=== PATIENT | male | born 1995 | race Caucasian/White ===

== ENCOUNTER 2020-10-02 14:02 | Emergency (ER) | payer OTHER, SELFPAY ==
[2020-10-02 14:14] VITALS: BP 150/101; PULSE 116; RESP 28; TEMP 36.7; O2SAT 97; BMI 20.9
--- NOTE | 2020-10-02 14:20 | XR_ITS ---
PROCEDURE: XR CHEST PORTABLE CLINICAL HISTORY: cough COMPARISON: No exams were available for comparison FINDINGS: The cardiomediastinal silhouette and pulmonary vascularity are within normal limits. The lungs are clear without infiltrates, suspicious nodules, or pleural effusions. No acute bony abnormalities. IMPRESSION: No acute findings. Dictated by: Bandar York MD 10/02/2020 14:31 Bandar York MD in [place] 10/02/2020 14:31
--- NOTE | 2020-10-02 14:37 | [facility].EDANX ---
ED Disposition Clinical Impression: Acute anxiety Disposition: Home, Self-Care Condition on Discharge: Good Instructions: Anxiety and Panic Attacks (Alternative Therapy) Prescriptions: LORazepam [Ativan 1mg tablet] 1 mg PO BID #6 tab Prescription Printed Referrals: Lexie Sullivan [Primary Care Provider] - - Critical Care Critical Care Time: No Attestation: On 10/02/20, the high probability of a clinically significant, sudden or life threatening deterioration of the following system(s) required my full and direct attention, intervention and personal management. The time I documented below is in addition to time spent performing reported procedures but includes the following listed in this critical care notation. Medical Decision Making - Medical Records Medical records reviewed: Yes: I reviewed the patient's medical records. - Betito Inquiry Pt receiving controlled substance: No Vital Signs: 10/02/20 14:14 10/02/20 15:20 Temperature 98.1 F Temperature Source Oral Pulse Rate [Right Brachial] 116 H 94 H Respiratory Rate 28 H 17 Blood Pressure [Right Arm] 150/101 H 127/76 Blood Pressure Mean [Right Arm] 117 93 Blood Pressure Source [Right Arm] Automatic Cuff Automatic Cuff Blood Pressure Position [Right Arm] Sitting Supine 02 Sat by Pulse Oximetry 97 95 Oxygen Delivery Method Room Air Room Air - Lab Data Lab Results 10/02/20 12:35: Sodium 139, Potassium 4.1, Chloride 95 L, Carbon Dioxide 32 H, Anion Gap 16.1 H, BUN 9, Creatinine 1.10, Estimated Creat Clear 98, Estimated GFR 81, Est GFR ( Amer) 98, Glucose 96, Calcium 9.8, Total Bilirubin 0.4, AST 38, ALT 20, Alkaline Phosphatase 85, Troponin I < 0.01, Total Protein 7.5, Albumin 4.6, Globulin 2.9, Albumin/Globulin Ratio 1.6 10/02/20 14:35: WBC 8.1, RBC 5.81, Hgb 16.6, Hct 50.0, MCV 86.1, MCH 28.6, MCHC 33.3, RDW 13.2, Plt Count 325, MPV 7.1 L, Neut % (Auto) 67.2, Lymph % (Auto) 24.2, [place] % (Auto) 7.1, Eos % (Auto) 0.9, Baso % (Auto) 0.7, Neut # (Auto) 5.4, Lymph # (Auto) 2.0, [place] # (Auto) 0.6, Eos # (Auto) 0.1, Baso # (Auto) 0.1 Result diagrams: 10/02/20 14:35 10/02/20 12:35 Orders (Tests/Meds): ED MEDICATIONS Generic Name Dose Route Start Last Admin Trade Name Freq PRN Reason Stop Dose Admin Sodium Chloride 10 ml 10/02/20 14:21 10/02/20 14:48 Sodium Chloride 0.9% 10ml Vial IV 11/01/20 14:20 10 ml NEEDED PRN Administration to Dilute Lorazepam inj Discontinued Medications Generic Name Dose Route Start Last Admin Trade Name Freq PRN Reason Stop Dose Admin Lorazepam 1 mg 10/02/20 14:21 10/02/20 14:43 Lorazepam 2mg/Ml Vial IV 10/02/20 14:22 1 mg ONCE ONE Administration ORDERS Category Date Time Status Troponin I Q3H Lab 10/02/20 17:30 Ordered Troponin I Q3H Lab 10/02/20 20:30 Ordered - Radiology Data #1 Image(s): Chest Image Reviewed: Yes I reviewed the patient's radiology results, Yes I reviewed the patient's radiology image, Yes I have reviewed radiologist's interpretation Preliminary Findings: Normal/NAD - ECG Data Tracing #1 Tachycardic rate of 106 bpm, normal UT interval, normal QTC. Sinus tachycardia with nonspecific changes ECG initial impression date: 10/02/20 ECG initial impression time: 14:44 - Reevaluation(s) Time: 15:51 Reevaluation #1: On reevaluation, patient is feeling much better. Much less anxious. Troponin was negative. Patient is currently hemodynamically stable. Needs to follow-up with PCP. Given strict return precautions. Verbalized understanding. Medical Decision Narrative: 25-year-old male presented to the emergency department with what appears to be anxiety. The patient is very anxious on my initial examination. Work-up will be initiated. Anxiety HPI - General Chief Complaint: Anxiety Stated Complaint: anxiety attack Time Seen by Provider: 10/02/20 14:20 Mode of Arrival: Ambulatory Limitations: No Limitations Description
--- NOTE | 2020-10-02 14:41 | ECG_ITS ---
APPROVED REPORT Exam: Resting ECG HR:106 bpm ECG Measurements Heart Rate 106 AXES AK 140 P 56 QRSd 106 QRS 90 QT 328 T 62 QTc 435 Conclusion Sinus tachycardia Rightward axis Incomplete right bundle branch block Borderline ECG Electronically signed by : Seth Gaines, 10/03/2020 19:36:56
[2020-10-02 14:44] LABS: Basophils # 0.1 K/mm3 (0-0.2); Basophils % 0.7 % (0.1-2.0); Eosinophils # 0.1 K/mm3 (0.0-0.4); Eosinophils % 0.9 % (0.1-12.0); Hemoglobin 16.6 g/dL (14.1-18.0); Lymphocytes % 24.2 % (10-50); Mean Corpuscular HGB Conc 33.3 g/dL (31.8-35.4); Mean Corpuscular Hemoglobin 28.6 pg (27.0-31.2); Mean Corpuscular Volume 86.1 fl (80-94); Mean Platelet Volume 7.1 fl (7.4-10.4); Monocytes # 0.6 K/mm3 (0.1-1.0); Monocytes % 7.1 % (1.7-9.3); Neutrophils # 5.4 K/mm3 (1.8-7.8); Neutrophils % 67.2 % (37.0-80.0); Platelet Count 325 K/mm3 (142-424); Red Blood Count 5.81 M/mm3 (4.60-6.20); Red Cell Distribution Width 13.2 % (11.5-17.5); White Blood Count 8.1 K/mm3 (4.8-10.8)
[2020-10-02 14:47] LABS: Chloride 95 mmol/L (98-107)
[2020-10-02 14:48] LABS: Potassium 4.1 mmoL/L (3.5-5.1); Sodium 139 mmol/L (136-145)
[2020-10-02 14:50] LABS: Alanine Aminotransferase 20 U/L (12-78); Alkaline Phosphatase 85 U/L (38-126); Anion Gap 16.1 mEq/L (5-15); Aspartate Amino Transferase 38 U/L (17-59); Bilirubin,Total 0.4 mg/dl (0.2-1.3); Blood Urea Nitrogen 9 mg/dl (9-20); Carbon Dioxide 32 mmol/L (22.0-30.0); Creatinine Clearance Estimated 98 mL/min (50-200); Estimated Glomerular Filt Rate 81 ml/min (>60); GFR (African American) 98 ML/MIN (>60)
[2020-10-02 14:51] LABS: Albumin Level 4.6 g/dl (3.5-5.0); Albumin/Globulin Ratio 1.6 (1.1-1.8); Calcium 9.8 mg/dl (8.4-10.2); Globulin 2.9 g/dL (1.3-3.2); Glucose 96 mg/dl (74-100); Total Protein,Serum 7.5 g/dl (6.3-8.2)
[2020-10-02 15:04] LABS: Troponin I < 0.01 ng/ml (0.00-0.034)
[2020-10-02 15:20] VITALS: BP 127/76; PULSE 94; RESP 17; O2SAT 95
--- NOTE | 2020-10-02 15:20 | PC.NURSE ---
PATIENT SLEEPING AT THIS TIME
[2020-10-02 15:53] VITALS: BP 127/76; PULSE 94; RESP 17; TEMP 36.7; O2SAT 97
== END 2020-10-02 15:55 | disposition home or self-care (01) ==
PROVIDERS: Emergency Provider Emergency Medicine; PCP Family Medicine
DX: F41.9 Anxiety disorder, unspecified (principal); F17.210 Nicotine dependence, cigarettes, uncomplicated
CPT/HCPCS: 71045; 80053; 84484; 85025; 93005; 96374; 99283